=== PATIENT | female | born 1975 | race Two or more races ===

== ENCOUNTER → 2017-03-04 | Outpatient (REF) | payer BC, MEDICAID ==
[~2017-03-04] MED LIST: PRENTAB9 PO
== END ==
LOC: M SFHCLERA 20:34
PROVIDERS: ATTEND Nurse Practitioner Family
DX: R30.0 Dysuria (principal)

== ENCOUNTER → 2017-03-11 | Outpatient (REF) | payer BC, MEDICAID | LOC: M SFHCLERA 19:09 | PROVIDERS: ATTEND Nurse Practitioner Family | DX: R39.9 Unspecified symptoms and signs involving the genitourinary system (principal) ==